=== PATIENT | male | born 1995 | race Caucasian/White ===

== ENCOUNTER 2017-12-12 12:50 | Emergency (ER) | payer OTHER ==
[2017-12-12] MEDS: IBUPROFEN 800 MG TAB PO (13:39)
== END 2017-12-12 14:57 | disposition home or self-care (01) ==
LOC: FTE 12:50
DX: S80.211A Abrasion, right knee, initial encounter (principal); E11.9 Type 2 diabetes mellitus without complications; V03.02XA Pedestrian on skateboard injured in collision with car, pick-up truck or van in nontraffic accident, initial encounter
CPT/HCPCS: 73562; 99283-25